=== PATIENT | male | born 1995 | race Caucasian/White ===

== ENCOUNTER 2018-07-08 03:15 | Inpatient (IN) | payer BC, OTHER ==
[~2018-07-08] VITALS: Ht 185.4 cm; Wt 84.1 kg
[~2018-07-08 03:15] MED LIST: DEXM15CA PO
[2018-07-08] MEDS: METOPROLOL TARTRATE 1 MG/ML VIAL IV STA ×2 (03:43→04:05)
[2018-07-08] MEDS ORDERED: SODIUM CHLORIDE 0.9% 1000ML 1,000 ML IV ONE ×2 (03:45)
[2018-07-08 03:47] LABS: BASO % 0.3 %; BASO ABS # 0.03 K/uL (0-0.2); EOS % 0.3 %; EOS ABS # 0.03 K/uL (0-0.5); HEMATOCRIT 44.2 % (42-52); HEMOGLOBIN 15.1 g/dL (14.0-18.0); IG# 0.01 K/uL (0.00-0.02); LYMPH % 28.8 %; LYMPH ABS # 2.52 K/uL (1.2-3.4); MEAN CORPUSCULAR HEMOGLOBIN 32.1 pg (25-34); MEAN CORPUSCULAR HGB CONC 34.2 g/dl (32-36); MEAN PLATELET VOLUME 10.1 fL (7.4-10.4); MONO % 9.2 %; MONO ABS # 0.81 K/uL (0.11-0.59); NEUT % 61.3 %; NEUT ABS # 5.36 K/uL (1.4-6.5); PLATELET COUNT 264 K/uL (130-400); RED CELL DISTRIBUTION WIDTH CV 11.8 % (11.5-14.5); RED CELL DISTRIBUTION WIDTH SD 40.2 fL (36.4-46.3); WHITE BLOOD COUNT 8.76 K/uL (4.8-10.8)
[2018-07-08 03:58] LABS: PTT PATIENT 27.3 SECONDS (21.0-31.0)
[2018-07-08 04:16] LABS: ALBUMIN 4.7 gm/dl (3.4-5.0); ALKALINE PHOSPHATASE 71 U/L (45-117); ALT/SGPT 20 U/L (12-78); AST/SGOT 19 U/L (15-37); BLOOD UREA NITROGEN 13 mg/dl (7-18); CALCIUM 8.9 mg/dl (8.5-10.1); CARBON DIOXIDE 24 mmol/L (21-32); CREATININE 1.25 mg/dl (0.60-1.40); GLUCOSE 88 mg/dl (70-99); POTASSIUM 3.4 mmol/L (3.5-5.1); SODIUM 139 mmol/L (136-145); TOTAL PROTEIN 8.3 gm/dl (6.4-8.2)
[2018-07-08] MEDS ORDERED: POTASSIUM CHLORIDE 20 MEQ TABCR PO STA ×2 (04:19→05:53)
[2018-07-08] MEDS ORDERED: POTASSIUM CHLORIDE 10 MEQ TABCR ONE ×3 (04:34→05:57)
[2018-07-08] MEDS ORDERED: DEXM1CAP PO (05:08)
[2018-07-08] MEDS ORDERED: NSS + 20MEQ KCL 1000ML 1,000 ML IV SCH ×2 (05:30→07:15)
[2018-07-08] MEDS: SODIUM CHLORIDE 0.9% 1000ML 1,000 ML IV SCH ×2 (05:45→07:01)
--- NOTE | 2018-07-08 05:56 | History and Physical ---
History & Physical Date & Time of Service: Jul 08, 2018 at 05:29 Chief Complaint: Speeding Heart,Fainting,Light Headed Primary Care Physician: [facility] History of Present Illness Source: patient, hospital records Patient is a 22 year old male with ADHD currently on Focalin that presents with rapid heart rate at rest with a syncopal episode this evening. The patient initially had an episode this evening around 11:45 after being out and having 4 drinks of alcohol earlier in the evening. He had been drinking from 11-12:30, and immediately when he left the bar he had a 10-20 second episode of elevated heart rate. His next episode was at 1:30 am again lasting 10-20 seconds. At 2am the episodes began to become more frequent, occurring on and off for 10 minutes. At this time he tried standing to help with the discomfort he was having, and fell over hitting his right side of his chest of the dressing and became unconscious for approximately 20 second. At that time they decided to come to the emergency department. He has since been having episode lasting 5-20 seconds on and off every few minutes. In the ED his heart rate will be 50s-70s NSR and then accelerate immediately to 170-200 bpm. He was given 2 doses of 5mg Lopressor in the ED that appeared to lower the maximal rate of these episodes from 200 down to 170/180 bpm. He denies any chest pain, dizziness, shortness of breath, vision changes, or any complaints other that palpitations during these episodes. He denies any other illicit drug use or energy drink throughout the day. The patient does appreciate that his mother has a history of rapid heart rate. He has never had an episode like this before. He has been on his Focalin for 6 years and had no cardiac issues during this time. Past Medical/Surgical History Medical Problems: (1) Avulsion of skin of right hand (2) Rapid resting heart rate Family History Mother - Rapid Heart Rate Social History Smoking Status: Never Smoker Smokeless Tobacco Use: No Alcohol Use: socially (Patient reports drinking alcohol every other day this week.) Drug Use: none Marital Status: single Housing status: lives alone Occupational Status: [employer] student Immunizations History of Influenza Vaccine: Unknown History of Tetanus Vaccine?: Unknown History of Pneumococcal: Unknown History of Hepatitis B Vaccine: Unknown Allergies Coded Allergies: No Known Allergies (Unverified , 09/02/15) Home Medications Scheduled Dexmethylphenidate Hcl (Focalin Xr), 25 MG PO DAILY Diltiazem Hcl Ext Rel (Tiazac), 120 MG PO DAILY Review of Systems Constitutional: No fever, No chills, No weight loss, No fatigue Respiratory: No cough, No sputum, No wheezing, No shortness of breath, No dyspnea on exertion Cardiovascular: + palpitations, No chest pain, No orthopnea, No edema Abdomen: No pain, No nausea, No vomiting, No diarrhea, No constipation Musculoskeletal: No joint pain Genitourinary - Male: No hematuria, No dysuria, No urinary frequency Endocrine: No fatigue, No excessive thirst, No excessive urination Integumentary: + problem reported (Large abrasion over the right side of the chest down to the hip) Physical Exam Vital Signs Date Time Temp Pulse Resp B/P (MAP) Pulse Ox O2 Delivery O2 Flow Rate FiO2 07/08/18 05:20 73 13 96 Room Air 07/08/18 05:15 62 14 122/76 96 07/08/18 05:10 81 12 98 07/08/18 05:05 69 20 99 07/08/18 05:00 118 19 122/76 92 07/08/18 04:55 79 20 97 07/08/18 04:50 72 10 95 07/08/18 04:45 156 10 119/105 07/08/18 04:40 67 14 97 07/08/18 04:35 72 14 99 07/08/18 04:30 69 10 123/82 97 07/08/18 04:25 74 21 100 07/08/18 04:20 76 17 100 07/08/18 04:15 71 21 131/89 90 07/08/18 04:15 71 21 131/89 99 Room Air 07/08/18 04:08 114/80 07/08/18 04:05 191 07/08/18 04:01 73 13 123/75 07/08/18 04:00 85 07/08/18 03:52 175 07/08/18 03:50 61 07/08/18 03:48 74 07/08/18 03:47 49 07/08/18 03:47 77 07/08/18 03:46 169 07/08/18 03:45 98 Room Air 07/08/18 03:45 76 07/08/18 03:45 74 14 134/90 07/08/18 03:43 188 07/08/18 03:43 68 07/08/18 03:42 153/94 07/08/18 03:42 07/08/18 03:40 189 10 07/08/18 03:36 68 07/08/18 03:35 170 07/08/18 03:35 88 17 07/08/18 03:34 74 07/08/18 03:32 58 07/08/18 03:30 62 15 07/08/18 03:29 75 07/08/18 03:29 76 07/08/18 03:27 176 07/08/18 03:27 199 07/08/18 03:27 56 07/08/18 03:26 210 07/08/18 03:17 36.9 72 18 118/78 98 Room Air General Appearance: WD/WN, no apparent distress Head: normocephalic, atraumatic Eyes: normal inspection, sclerae normal Neck: supple, no carotid bruits Respiratory/Chest: chest non-tender, lungs clear, normal breath sounds Cardiovascular: no edema, no gallop, no murmur, + tachycardia Abdomen/GI: normal bowel sounds, non tender, soft Back: no CVA tenderness Extremities/Musculoskelatal: no calf tenderness, no pedal edema Neurologic/Psych: alert, normal mood/affect, oriented x 3 Skin: + pertinent finding (Large abrasion over the right side of the chest from the nipple region down to the right hip) Diagnostics Laboratory Results Results Past 24 Hours Test 07/08/18 03:30 07/08/18 03:40 07/08/18 03:51 07/08/18 04:00 Range/Units White Blood Count 8.76 4.8-10.8 K/uL Red Blood Count 4.70 4.7-6.1 M/uL Hemoglobin 15.1 14.0-18.0 g/dL Hematocrit 44.2 42-52 % Mean Corpuscular Volume 94.0 80-100 fL Mean Corpuscular Hemoglobin 32.1 25-34 pg Mean Corpuscular Hemoglobin Concent 34.2 32-36 g/dl Platelet Count 264 130-400 K/uL Mean Platelet Volume 10.1 7.4-10.4 fL Neutrophils (%) (Auto) 61.3 % Lymphocytes (%) (Auto) 28.8 % Monocytes (%) (Auto) 9.2 % Eosinophils (%) (Auto) 0.3 % Basophils (%) (Auto) 0.3 % Neutrophils # (Auto) 5.36 1.4-6.5 K/uL Lymphocytes # (Auto) 2.52 1.2-3.4 K/uL Monocytes # (Auto) 0.81 0.11-0.59 K/uL Eosinophils # (Auto) 0.03 0-0.5 K/uL Basophils # (Auto) 0.03 0-0.2 K/uL RDW Standard Deviation 40.2 36.4-46.3 fL RDW Coefficient of Variation 11.8 11.5-14.5 % Immature Granulocyte % (Auto) 0.1 % Immature Granulocyte # (Auto) 0.01 0.00-0.02 K/uL Prothrombin Time 10.7 9.0-12.0 SECONDS Prothromb Time International Ratio 1.0 0.9-1.1 Activated Partial Thromboplast Time 27.3 21.0-31.0 SECONDS Partial Thromboplastin Ratio 1.1 Sodium Level 139 136-145 mmol/L Potassium Level 3.4 3.5-5.1 mmol/L Chloride Level 104 98-107 mmol/L Carbon Dioxide Level 24 21-32 mmol/L Anion Gap 11.0 3-11 mmol/L Blood Urea Nitrogen 13 7-18 mg/dl Creatinine 1.25 0.60-1.40 mg/dl Estimated GFR () 94.8 Estimated GFR (Non- 81.8 BUN/Creatinine Ratio 10.3 10-20 Random Glucose 88 70-99 mg/dl Calcium Level 8.9 8.5-10.1 mg/dl Magnesium Level 2.1 1.8-2.4 mg/dl Total Bilirubin 0.7 0.2-1 mg/dl Aspartate Amino Transf (AST/SGOT) 19 15-37 U/L Alanine Aminotransferase (ALT/SGPT) 20 12-78 U/L Alkaline Phosphatase 71 45-117 U/L Total Protein 8.3 6.4-8.2 gm/dl Albumin 4.7 3.4-5.0 gm/dl Globulin 3.6 2.5-4.0 gm/dl Albumin/Globulin Ratio 1.3 0.9-2 Thyroid Stimulating Hormone (TSH) 2.580 0.300-4.500 uIu/ml Lyme Disease IgG Antibody NEG NEG Lyme Disease IgM Antibody NEG NEG Ethyl Alcohol mg/dL 48.0 0-3 mg/dl Bedside Troponin I < 0.030 0-0.045 ng/ml Urine Color YELLOW Urine Appearance CLEAR CLEAR Urine pH 6.5 4.5-7.5 Urine Specific [place] 1.006 1.000-1.030 Urine Protein NEG NEG Urine Glucose (UA) NEG NEG Urine Ketones NEG NEG Urine Occult Blood NEG NEG Urine Nitrite NEG NEG Urine Bilirubin NEG NEG Urine Urobilinogen NEG NEG Urine Leukocyte Esterase NEG NEG Urine Opiates Screen NEG NEG Urine Methadone, Qualitative NEG NEG Urine Barbiturates NEG NEG Urine Phencyclidine (PCP) Level NEG NEG Ur Amphetamine/Methamphetamine NEG NEG MDMA (Ecstasy) Screen NEG NEG Urine Benzodiazepines Screen NEG NEG Urine Cocaine Metabolite NEG NEG Urine Marijuana (THC) NEG NEG Test 07/08/18 05:26 Range/Units EKG Poor data quality, interpretation may be adversely affected Undetermined rhythm Rightward axis Marked ST abnormality, possible inferior subendocardial injury Abnormal ECG When compared with ECG of 08-JUL-2018 03:25, (unconfirmed) Current undetermined rhythm precludes rhythm comparison, needs review ST now depressed in Inferior leads ST now depressed in Anterolateral leads T wave inversion now evident in Inferior leads Impression Assessment and Plan Patient is a 22 year old male with ADHD currently on Focalin that presents with rapid heart rate at rest with a syncopal episode this evening Symptomatic Inappropriate Sinus Tachycardia - Patient appears volume depleted --> Has already received 2L NS Bolus in the ED - Ethyl Alcohol 48.0 - 2L NS Bolus - NS + 20K @ 150 mls/hr - Cardiology Consult - Admit to telemetry Hypokalemia - K+ 3.4 - Given 40 mEq of Potassium Chloride IV in ED - Give another 40 mEq PO Potassium Chloride - Recheck BMP at 12 pm ADHD - Hold home meds DVT - SCDs Code Status - Attending addendum: I have physically seen this patient, have supervised the medical residents activities, and agree with the H&P unless as otherwise noted. Assessment and Plan: Paroxysmal supraventricular tachycardia/hypokalemia-- The patient will be admitted to telemetry for serial cardiac enzymes, serial EKG's, cardiac rhythm monitoring and a 2-D echocardiogram with Dopplers. Suspect associated with holiday heart on top of genetic predisposition to the mother's history. Advised cessation of alcohol completely. NSS + KCl 20 mEq at 150 mils per hour. Give potassium chloride 40 mEq by mouth and IV tonight. Serial CBC with differential, basic metabolic panel and magnesium level. Consult cardiology. Advanced Directives Existing Advance Directive: No Existing Living Will: No Existing Power of Lithograph Press Operator Tinware: No Resuscitation Status Full Resuscitation VTE Prophylaxis Will order VTE Prophylaxis: Yes Social Service Consult None Apply Resident Tracking Resident Involvement: Resident Care Provided Care Provided: Adult Hospital Medicine
[2018-07-08] MEDS ORDERED: ACETAMINOPHEN IV 100 ML IV PRN (06:00)
[2018-07-08 06:46] VITALS: O2SAT 98
--- NOTE | 2018-07-08 07:18 | DIAGNOSTIC IMAGING REPORT ---
SINGLE VIEW CHEST CLINICAL HISTORY: Tachycardia. FINDINGS: 2 AP, portable, supine chest radiographs are obtained. No prior studies are available for comparison at the time of dictation. The examination is degraded by portable technique and patient rotation. The cardiomediastinal silhouette is unremarkable. The lungs and pleural spaces are clear. No pneumothorax is seen. The bony thorax is grossly intact. IMPRESSION: No active disease in the chest. Electronically signed by: Ethan Kemp M.D. 07/08/2018 7:16 AM Dictated Date/Time: 07/08/2018 7:16 AM
[2018-07-08 07:30] VITALS: BP 116/80; PULSE 71; TEMP 36.9; Ht 185.4 cm; Wt 84.1 kg
[2018-07-08] MEDS ORDERED: POTASSIUM CHLORIDE 20 MEQ TABCR PO ONE (08:00)
[2018-07-08 09:44] VITALS: BP 116/80; PULSE 71; TEMP 36.9; O2SAT 98
[2018-07-08] MEDS ORDERED: DILT120C68 PO ×2 (10:06→11:59)
--- NOTE | 2018-07-08 10:12 | Discharge Instructions ---
Discharge Instructions Date of Service Jul 08, 2018. Admission Reason for Admission: Rapid Resting Heart Rate Discharge Discharge Diagnosis / Problem: Supraventricular Tachycardia Discharge Goals Goal(s): Improve disease control Activity Recommendations Activity Limitations: resume your previous activity . Instructions / Follow-Up Instructions / Follow-Up You were admitted to [facility] due to feeling like your heart was beating very quickly and an episode where you fainted. We were able to see this rhythm on the EKG (electrical tracing of your heart) and on the heart monitor that you were wearing, and it is a rhythm called supraventricular tachycardia. This is common in your age group and can be precipitated by caffeine, alcohol, stress. Essentially, the electrical system in your heart that controls the rhythm is not working properly and it causes your heart to frequently and suddenly beat very quickly for a period of time. Given that you have been stable and not having symptoms with this, we will treat you with a medicine that will help keep your heart rate regular called diltiazem. We will also make an appointment for you to follow up with cardiology in the office, and they will discuss further treatment options with you, such as ablation. In the meantime, if you experience more palpitations and have any chest pain, lightheadedness, shortness of breath or fainting episodes, please seek medical attention. Please follow up with Dr. Kapadia on July 12 at 1:10PM at the [facility] offices ([address], [address]). If you need to change or cancel your appointment, please call [phone]. Current Hospital Diet Patient's current hospital diet: Regular Diet Discharge Diet Recommended Diet: Regular Diet Pending Studies Studies pending at discharge: no Medical Emergencies . Who to Call and When: Medical Emergencies: If at any time you feel your situation is an emergency, please call 911 immediately. . Non-Emergent Contact Non-Emergency issues call your: Primary Care Provider . . "Provider Documentation" section prepared by Fnia Kapadia. .
[2018-07-08] MEDS ORDERED: BACITRACIN OINT 15 GM TUBE EXT ONE (10:15)
--- NOTE | 2018-07-08 10:17 | Cardiology Consultation ---
Cardiology Consultation Date of Consultation: Jul 08, 2018. Requesting Physician: Dr. Dudley Reason for Consultation: SVT Pt evaluation today including: conversation w/ patient, physical exam, lab review, review of studies, review of inpatient medication list, conversation w/ attending History of Present Illness This is a very pleasant 22-year-old college student, he is a senior at [employer]. He is on Focalin and has been for about 6 years. He has a long history of palpitations generally brief, generally occurring perhaps once a month and not being very bothersome. He recalls having these for most of his life. He has never had prolonged episodes until last evening, he was drinking throughout the evening, then noted frequent episodes of rapid HR. On one occasion he is reported to have dizziness and passed out while standing up for 15-20 seconds. He seems quite aware of the rapid heart rate and can describe it well, including prior to this event. He had very frequent episodes of rapid SVT in the emergency room, during the SVT the heart rate was often about 200 bpm. The episodes were relatively brief and became less frequent after admission. I believe he received 10 mg of IV metoprolol tartrate at about 4 AM. Past Medical/Surgical History Palpitations ADHD Social History Smoking Status: Never Smoker History of Alcohol Use: Yes (SOCIAL DRINKS) Review of Systems Constitutional: No fever, No weight loss, No weakness Respiratory: No cough, No wheezing, No shortness of breath, No dyspnea on exertion Cardiac: + see HPI, + palpitations, No chest pain, No orthopnea, No PND, No edema Abdomen: No pain, No nausea, No vomiting, No diarrhea, No GI bleeding Male : No urinary frequency, No nocturia more than once/night, No slowing stream, No sexual dysfunction Neurologic: No paralysis, No weakness, No numbness/tingling, No balance problems Heme: No abnormal bleeding/bruising, No clotting problems Endo: No fatigue Skin: No problem reported All Other Systems: Reviewed and Negative Allergies Coded Allergies: No Known Allergies (Unverified , 09/02/15) Medications Current Inpatient Medications Medications (Trade) Dose Ordered Sig/Charmaine Route Start Time Stop Time Status Last Admin Dose Admin Potassium Chloride/Sodium Chloride 1,000 ml @ 150 mls/hr [id number] IV 07/08/18 07:15 08/07/18 05:23 07/08/18 07:22 150 MLS/HR Acetaminophen 100 ml @ 400 mls/hr Q8H PRN IV 07/08/18 06:00 08/07/18 05:59 Physical Exam Vital Signs Past 12 Hours Date Time Temp Pulse Resp B/P (MAP) Pulse Ox O2 Delivery O2 Flow Rate FiO2 07/08/18 09:44 36.9 71 16 98 Room Air 07/08/18 07:30 36.9 71 16 116/80 Room Air 07/08/18 06:46 73 16 115/93 98 07/08/18 06:25 77 14 98 07/08/18 06:15 120/86 07/08/18 06:10 71 12 99 07/08/18 06:05 95 18 100 Room Air 07/08/18 06:00 64 18 111/83 99 07/08/18 05:55 79 16 95 07/08/18 05:50 90 15 96 Room Air 07/08/18 05:48 87/57 07/08/18 05:45 92 12 78/56 96 07/08/18 05:42 122/69 07/08/18 05:40 88 12 73/34 95 07/08/18 05:35 67 16 99 07/08/18 05:30 175 13 83/66 07/08/18 05:25 85 11 99 07/08/18 05:20 73 13 96 Room Air 07/08/18 05:15 62 14 122/76 96 07/08/18 05:10 81 12 98 07/08/18 05:05 69 20 99 07/08/18 05:00 118 19 122/76 92 07/08/18 04:55 79 20 97 07/08/18 04:50 72 10 95 07/08/18 04:45 156 10 119/105 07/08/18 04:40 67 14 97 07/08/18 04:35 72 14 99 07/08/18 04:30 69 10 123/82 97 07/08/18 04:25 74 21 100 07/08/18 04:20 76 17 100 07/08/18 04:15 71 21 131/89 90 07/08/18 04:15 71 21 131/89 99 Room Air 07/08/18 04:08 114/80 07/08/18 04:05 191 07/08/18 04:01 73 13 123/75 07/08/18 04:00 85 07/08/18 03:52 175 07/08/18 03:50 61 07/08/18 03:48 74 07/08/18 03:47 49 07/08/18 03:47 77 07/08/18 03:46 169 07/08/18 03:45 98 Room Air 07/08/18 03:45 76 07/08/18 03:45 74 14 134/90 07/08/18 03:43 188 07/08/18 03:43 68 07/08/18 03:42 153/94 07/08/18 03:42 07/08/18 03:40 189 10 07/08/18 03:36 68 07/08/18 03:35 170 07/08/18 03:35 88 17 07/08/18 03:34 74 07/08/18 03:32 58 07/08/18 03:30 62 15 07/08/18 03:29 75 07/08/18 03:29 76 07/08/18 03:27 176 07/08/18 03:27 199 07/08/18 03:27 56 07/08/18 03:26 210 07/08/18 03:17 36.9 72 18 118/78 98 Room Air Constitutional: General Apperance: heathly-appearing Level of Distress: NAD Psychiatric: Mental Status: active & alert Head: normocephalic Eyes: EOM: EOMI ENMT: normal ENT inspection, hearing grossly normal Neck: supple, no masses Lungs: Respiratory effort: no dyspnea, good air movement Auscultation: breath sounds normal, no wheezing Cardiovascular: Heart Auscultation: RRR, no murmurs, no rubs, no gallops Peripheral Pulses: Bruits: none appreciated Abdomen: Bowel Sounds: normal Inspection & Palpation: soft, no tenderness, guarding & rebound, no masses Musculoskeletal: normal strength (5/5 throughout) Extremities: no edema Neurologic: Cranial Nerves: grossly intact Sensation: grossly intact Data Laboratory Results: Last 24 Hours Test 07/08/18 03:30 07/08/18 03:40 07/08/18 03:51 07/08/18 04:00 White Blood Count 8.76 K/uL Red Blood Count 4.70 M/uL Hemoglobin 15.1 g/dL Hematocrit 44.2 % Mean Corpuscular Volume 94.0 fL Mean Corpuscular Hemoglobin 32.1 pg Mean Corpuscular Hemoglobin Concent 34.2 g/dl Platelet Count 264 K/uL Mean Platelet Volume 10.1 fL Neutrophils (%) (Auto) 61.3 % Lymphocytes (%) (Auto) 28.8 % Monocytes (%) (Auto) 9.2 % Eosinophils (%) (Auto) 0.3 % Basophils (%) (Auto) 0.3 % Neutrophils # (Auto) 5.36 K/uL Lymphocytes # (Auto) 2.52 K/uL Monocytes # (Auto) 0.81 K/uL Eosinophils # (Auto) 0.03 K/uL Basophils # (Auto) 0.03 K/uL RDW Standard Deviation 40.2 fL RDW Coefficient of Variation 11.8 % Immature Granulocyte % (Auto) 0.1 % Immature Granulocyte # (Auto) 0.01 K/uL Prothrombin Time 10.7 SECONDS Prothromb Time International Ratio 1.0 Activated Partial Thromboplast Time 27.3 SECONDS Partial Thromboplastin Ratio 1.1 Sodium Level 139 mmol/L Potassium Level 3.4 mmol/L Chloride Level 104 mmol/L Carbon Dioxide Level 24 mmol/L Anion Gap 11.0 mmol/L Blood Urea Nitrogen 13 mg/dl Creatinine 1.25 mg/dl Estimated GFR () 94.8 Estimated GFR (Non- 81.8 BUN/Creatinine Ratio 10.3 Random Glucose 88 mg/dl Calcium Level 8.9 mg/dl Magnesium Level 2.1 mg/dl Total Bilirubin 0.7 mg/dl Aspartate Amino Transf (AST/SGOT) 19 U/L Alanine Aminotransferase (ALT/SGPT) 20 U/L Alkaline Phosphatase 71 U/L Total Protein 8.3 gm/dl Albumin 4.7 gm/dl Globulin 3.6 gm/dl Albumin/Globulin Ratio 1.3 Thyroid Stimulating Hormone (TSH) 2.580 uIu/ml Lyme Disease IgG Antibody NEG Lyme Disease IgM Antibody NEG Ethyl Alcohol mg/dL 48.0 mg/dl Bedside Troponin I < 0.030 ng/ml Urine Color YELLOW Urine Appearance CLEAR Urine pH 6.5 Urine Specific [place] 1.006 Urine Protein NEG Urine Glucose (UA) NEG Urine Ketones NEG Urine Occult Blood NEG Urine Nitrite NEG Urine Bilirubin NEG Urine Urobilinogen NEG Urine Leukocyte Esterase NEG Urine Opiates Screen NEG Urine Methadone, Qualitative NEG Urine Barbiturates NEG Urine Phencyclidine (PCP) Level NEG Ur Amphetamine/Methamphetamine NEG MDMA (Ecstasy) Screen NEG Urine Benzodiazepines Screen NEG Urine Cocaine Metabolite NEG Urine Marijuana (THC) NEG Imaging: Normal on preliminary review EKG: During SVT suggestive of typical AV christian reentry although perhaps not diagnostic. During sinus rhythm the ECG is normal. Telemetry reviewed: Sinus rhythm with very frequent episodes of PSVT. The episodes are less frequent after initial treatment in the emergency room. They seem to start with a premature atrial beat with VA prolongation consistent with typical AV christian reentry. Assessment & Plan 1. 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 The very frequent episodes which occurred prompting this presentation may have been prompted by alcohol use in conjunction with Focalin therapy and perhaps a contribution of his slight hypokalemia. I discussed options with him, this includes doing nothing (which may not be a good idea considering the severity of his episodes during the hours preceding his admission) versus medical therapy or ablation. He would prefer medical therapy I think that is reasonable for the time being. He does not have much trouble with it in the past and I think there may have been exacerbating factors last night. I would therefore recommend trying medical therapy which I told him he needs to take a day, not just when he starts having palpitations. We could use beta-blockade (which seems to have helped) however young people often do not tolerate it well. Perhaps calcium blockade is a better choice and I will start him on oral diltiazem. I will send him up to be seen in the office in several weeks. Thank you for allowing me to participate in his care.
--- NOTE | 2018-07-08 10:19 | Discharge Summary ---
Discharge Summary Date of Service Jul 08, 2018. Discharge Summary Admission Date: Jul 08, 2018 at 05:29 Discharge Date: Jul 08, 2018 Discharge Disposition: Home Principal Diagnosis: Supraventricular Tachycardia Problems/Secondary Diagnoses: 1) ADHD Procedures: CXR IMPRESSION: No active disease in the chest. Consultations: Cardiology Medication Reconciliation New Medications: Diltiazem Hcl Ext Rel (Tiazac) 120 Mg Capcr 120 MG PO DAILY for 30 Days, #30 CAP 3 Refills Continued Medications: Dexmethylphenidate Hcl (Focalin Xr) 25 Mg Cap 25 MG PO DAILY, CAP Discharge Exam Mr. Hernandez reports he remains with occasional episodes of palpitations that resolve within a few seconds. He states it feels like his heart pauses, beats really fast, pauses again and then beats normally. He reports he has had this for a number of years, but that the episodes are usually self-limiting and he is otherwise asymptomatic. He denies chest pain, shortness of breath, and has no other complaints today. He has otherwise been well recently. Review of Systems: Constitutional: No fever, No chills Respiratory: No shortness of breath Cardiovascular: No chest pain Abdomen: No pain, No nausea, No vomiting Physical Exam: General Appearance: WD/WN, no apparent distress Respiratory/Chest: lungs clear, normal breath sounds, no respiratory distress, no accessory muscle use Cardiovascular: regular rate, rhythm, no edema, no murmur, normal peripheral pulses Abdomen / GI: non tender, soft, + pertinent finding (abrasion over right side of abdomen and on right side of chest. Superficial, not bleeding.) Hospital Course Mr. Hernandez is a 22 year old male with ADHD currently on Focalin that presents with rapid heart rate at rest with a subsequent syncopal episode this evening. Supraventricular Tachycardia - EKG and telemetry monitoring consistent w/SVT - pt was rehydrated with 3.5L bolus - no electrolyte abnormalities, TSH WNL, troponin negative - cardiology was consulted -> likely SVT w/typical AV [employer] -> discussed treatment options w/patients -> opt for medical management for now. Follow up w/cardiology in clinic -> may be a candidate for ablation - start diltiazem 120mg ER daily - ECHO -> normal LV size and wall thickness -> LVEF = 45-50% w/mild global dysfunction -> borderline dilated RV and mild MR -> likely secondary to a combination of SVT, alcohol intake and MR -> repeat ECHO within 6 months Resident Physician Supervision Note: I interviewed and examined the patient. Discussed with Dr. Kapadia and agree with findings and plan as documented in the note. Any exceptions or clarifications are listed here: None Documented By: Russel Hardin feeling better ok to go home d/w cardiology several times, input appreciated vitals noted nad breathing unlabored no pallor or icterus SVT - now sinus. diltiazem, close outpt f/u - would plan for elective ablation in near future systolic dysfunction cardiomyopathy - ?rate related, ?all acute. ?chronic due to rate/EtOH and MR? f/u echo in near future mild MR - likely contributory to above due to poorer forward CO w SVT - follow w serial echo Total Time Spent: Less than 30 minutes This includes examination of the patient, discharge planning, medication reconciliation, and communication with other providers. Discharge Instructions Please refer to the electronic Patient Visit Report (Discharge Instructions) for additional information. Resident Tracking Resident Involvement: Resident Care Provided Care Provided: Adult Hospital Medicine
--- NOTE | 2018-07-08 10:23 | ECHOCARDIOGRAM REPORT ---
*NOTICE TO RECEIVING DEMOCRAT AGENCY This information is strictly Confidential and protected under [place] law. [place] law prohibits you from making any further disclosure of this information unless further disclosure is expressly permitted by the written consent of the person to whom it pertains or is authorized by law. A general authorization for the release of medical or other information is not sufficient for this purpose. Hospital accepts no responsibility if the information is made available to any other person, INCLUDING THE PATIENT. Interpretation Summary * Name: MADHU TAYLOR Study Date: 07/08/2018 06:18 AM BP: 120/86 mmHg * Patient Location: C.2T\S\S241\S\1 HR: 75 * : 1995 (M/d/yyyy) Gender: Male Height: 73 in * Age: 22 yrs Ethnicity: CA Weight: 185 lb * Ordering Physician: Jagdish Dudley * Referring Physician: Self, Referred * Performed By: Asha Remy RCS * * Reason For Study: TACHYCARDIA * BSA: 2.1 m2 * -- Conclusions -- * 1. Normal LV size and wall thickness. * 2. LVEF 45-50%. Mild global dysfunction. * 3. Borderline dilated RV with normal function. * 4. Mild mitral regurgitation. * 5. Normal estimated RA and PA pressures. * 6. No prior studies for comparison. Procedure Details * A complete two-dimensional transthoracic echocardiogram was performed (2D, M-mode, Doppler and color flow Doppler). Left Ventricle * The left ventricle is grossly normal size. * There is normal left ventricular wall thickness. * Ejection Fraction = 45-50%. * No regional wall motion abnormalities noted. Right Ventricle * The right ventricle is mildly dilated. * The right ventricular systolic function is normal as assessed by tricuspid annular plane systolic excursion (TAPSE) (normal >1.5 cm). Atria * Borderline left atrial enlargement. * Borderline right atrial enlargement. * No ASD detected; PFO is not assessed. Mitral Valve * The mitral valve is grossly normal. * There is no mitral valve stenosis. * There is mild mitral regurgitation. Tricuspid Valve * There is trace tricuspid regurgitation. Aortic Valve * The aortic valve opens well. * The aortic valve is trileaflet. * No hemodynamically significant valvular aortic stenosis. * There is no significant aortic regurgitation. Pulmonic Valve * The pulmonic valve is not well seen, but is grossly normal. * There is no pulmonic valvular stenosis. * Trace pulmonic valvular regurgitation. Great Vessels * The aortic root and proximal ascending aorta are normal sized. Pericardium/Pleural * There is no pericardial effusion. Great Vessels * Normal inferior vena cava size and collapsability with sniff indicates a normal right atrial pressure of 3 mmHg MMode 2D Measurements and Calculations IVSd 1.2 cm IVSs 1.5 cm LVIDd 5.2 cm LVIDs 4.3 cm LVPWd 1.1 cm LVPWs 1.4 cm IVS/LVPW 1.0 FS 17.6 % EDV(Teich) 129.6 ml ESV(Teich) 82.4 ml EF(Teich) 36.4 % EDV(cubed) 140.7 ml ESV(cubed) 78.7 ml EF(cubed) 44.0 % % IVS thick 25.7 % % LVPW thick 25.4 % LV mass(C)d 232.9 grams LV mass(C)dI 111.9 grams/m\S\2 LV mass(C)s 240.2 grams LV mass(C)sI 115.4 grams/m\S\2 SV(Teich) 47.1 ml SI(Teich) 22.6 ml/m\S\2 SV(cubed) 62.0 ml SI(cubed) 29.8 ml/m\S\2 Ao root diam 2.9 cm Ao root area 6.7 cm\S\2 ACS 3.1 cm LA dimension 3.6 cm LA/Ao 1.2 LVOT diam 2.3 cm LVOT area 4.3 cm\S\2 LVAd ap4 42.7 cm\S\2 LVLd ap4 9.6 cm EDV(MOD-sp4) 158.0 ml EDV(sp4-el) 161.6 ml LVAs ap4 29.9 cm\S\2 LVLs ap4 8.4 cm ESV(MOD-sp4) 88.9 ml ESV(sp4-el) 90.5 ml EF(MOD-sp4) 43.7 % EF(sp4-el) 44.0 % LVAd ap2 35.0 cm\S\2 LVLd ap2 8.9 cm EDV(MOD-sp2) 114.9 ml EDV(sp2-el) 116.9 ml LVAs ap2 26.1 cm\S\2 LVLs ap2 8.3 cm ESV(MOD-sp2) 67.2 ml ESV(sp2-el) 69.8 ml EF(MOD-sp2) 41.5 % EF(sp2-el) 40.2 % LVLd %diff -7.73 % EDV(MOD-bp) 138.4 ml LVLs %diff -0.98 % ESV(MOD-bp) 77.2 ml EF(MOD-bp) 44.2 % SV(MOD-sp4) 69.1 ml SI(MOD-sp4) 33.2 ml/m\S\2 SV(MOD-sp2) 47.7 ml SI(MOD-sp2) 22.9 ml/m\S\2 SV(MOD-bp) 61.2 ml SI(MOD-bp) 29.4 ml/m\S\2 SV(sp4-el) 71.0 ml SI(sp4-el) 34.1 ml/m\S\2 SV(sp2-el) 47.0 ml SI(sp2-el) 22.6 ml/m\S\2 Doppler Measurements and Calculations MV E max juliana 78.2 cm/sec MV A max juliana 58.8 cm/sec MV E/A 1.3 MV P1/2t max juliana 91.5 cm/sec MV P1/2t 49.3 msec MVA(P1/2t) 4.5 cm\S\2 MV dec slope 543.5 cm/sec\S\2 MV dec time 0.14 sec Ao V2 max 93.2 cm/sec Ao max PG 3.5 mmHg Ao max PG (full) 1.2 mmHg CAROLIN(V,A) 3.5 cm\S\2 CAROLIN(V,D) 3.5 cm\S\2 LV V1 max PG 2.3 mmHg LV V1 max 75.2 cm/sec PA V2 max 71.6 cm/sec PA max PG 2.1 mmHg PI max juliana 156.2 cm/sec PI max PG 9.8 mmHg PI dec slope 104.8 cm/sec\S\2 PI P1/2t 436.3 msec
[2018-07-08] MEDS ORDERED: DILTIAZEM HCL 180 MG CAPCR PO SCH (11:30)
[2018-07-08 11:43] VITALS: BP 121/75; PULSE 60; TEMP 36.5; O2SAT 98
[2018-07-08 12:38] LABS: CALCIUM 8.3 mg/dl (8.5-10.1); CREATININE 0.91 mg/dl (0.60-1.40); POTASSIUM 4.3 mmol/L (3.5-5.1)
--- NOTE | 2018-07-09 05:11 | EMERGENCY ROOM VISIT NOTE ---
History First contact with patient: 03:22 Chief Complaint: RAPID HEART RATE Stated Complaint: RAPID RESTING HEART RATE Nursing Triage Summary: Pt c/o having heart palpitations while leaving the bar [facility]. Pt states he felt dizzy and not right. Pt went to [employer] house. Pt states while he was there he started to feel this way again. Pt states he had a syncopal episode with it that lasted around 20 seconds. on arrival, patients HR goes from [address] History of Present Illness The patient is a 22 year old male who presents to the Emergency Room with complaints of syncopal episode bring him to the emergency department [facility]. The patient states that he was out with his girlfriend, and had 3 mixed drinks and 1 shot while at the bar. He went back to his girlfriend's house, where he began feeling palpitations in his chest. The patient states these palpitations were intermittent, and he tried to stand up as he felt this may improve things. When the patient stood up he lost consciousness, and fell to the ground. The event was witnessed by his girlfriend who states that he was out for roughly 20 seconds. When he fell he struck into a piece of furniture and suffered abrasion to his right side chest wall. The patient recovered very quickly, and did not have seizure-like activity afterwards. He now presents to the ER as he continues to have these palpitations that are quite symptomatic. He has never had anything to this extent before. The patient is usually healthy and does take Focalin, which he has been on for the past 6 years. He will drink socially , but has not had this in the past. He rates his current discomfort as 0/10 when laying down, however sitting and standing significantly increase his lightheadedness. Review of Systems More than 10 systems were reviewed and otherwise negative with the exception of history of present illness. Past Medical/Surgical History Medical Problems: (1) Rapid resting heart rate Family History No pertinent family history Social History Smoking Status: Never Smoker Smokeless Tobacco Use: No Alcohol Use: occasionally Drug Use: none Marital Status: in relationship Occupation Status: [employer] student Current/Historical Medications Scheduled Dexmethylphenidate Hcl (Focalin Xr), 25 MG PO DAILY Diltiazem Hcl Ext Rel (Tiazac), 120 MG PO DAILY Physical Exam Vital Signs Date Time Temp Pulse Resp B/P (MAP) Pulse Ox O2 Delivery O2 Flow Rate FiO2 07/08/18 05:25 85 11 99 07/08/18 05:20 73 13 96 Room Air 07/08/18 05:15 62 14 122/76 96 07/08/18 05:10 81 12 98 07/08/18 05:05 69 20 99 07/08/18 05:00 118 19 122/76 92 07/08/18 04:55 79 20 97 07/08/18 04:50 72 10 95 07/08/18 04:45 156 10 119/105 07/08/18 04:40 67 14 97 07/08/18 04:35 72 14 99 07/08/18 04:30 69 10 123/82 97 07/08/18 04:25 74 21 100 07/08/18 04:20 76 17 100 07/08/18 04:15 71 21 131/89 90 07/08/18 04:15 71 21 131/89 99 Room Air 07/08/18 04:08 114/80 07/08/18 04:05 191 07/08/18 04:01 73 13 123/75 07/08/18 04:00 85 07/08/18 03:52 175 07/08/18 03:50 61 07/08/18 03:48 74 07/08/18 03:47 49 07/08/18 03:47 77 07/08/18 03:46 169 07/08/18 03:45 98 Room Air 07/08/18 03:45 76 07/08/18 03:45 74 14 134/90 07/08/18 03:43 188 07/08/18 03:43 68 07/08/18 03:42 153/94 07/08/18 03:42 07/08/18 03:40 189 10 07/08/18 03:36 68 07/08/18 03:35 170 07/08/18 03:35 88 17 07/08/18 03:34 74 07/08/18 03:32 58 07/08/18 03:30 62 15 07/08/18 03:29 75 07/08/18 03:29 76 07/08/18 03:27 176 07/08/18 03:27 199 07/08/18 03:27 56 07/08/18 03:26 210 07/08/18 03:17 36.9 72 18 118/78 98 Room Air Physical Exam VITALS: Vitals are noted on the nurse's note and reviewed by myself. Vital signs stable. GENERAL: Well-developed, well-nourished, white male, who is in no acute distress and resting comfortably. Patient is cooperative with the examination. HEAD: Normocephalic atraumatic. EARS: External ear normal. External auditory canals clear, tympanic membranes pearly musa without erythema or effusion bilaterally. EYES: Pupils equal round and reactive to light and accommodation. Conjunctivae without injection, sclerae without icterus. Extraocular movements intact. NOSE: Patent, turbinates without inflammation or discharge. MOUTH: Mucous membranes moist. Tonsils are not enlarged. Pharynx without erythema, blood, or exudate. Uvula midline. Airway patent. NECK: Supple without nuchal rigidity. No lymphadenopathy. No thyromegaly. Cervical spine is nontender. HEART: Regular rate and rhythm without murmurs gallops or rubs. LUNGS: Clear to auscultation bilaterally without wheezes, rales or rhonchi. No retractions or accessory muscle use. SKIN: Superficial abrasion appreciated to the right side chest wall without active laceration Medical Decision & Procedures ER Provider Diagnostic Interpretation: SINGLE VIEW CHEST CLINICAL HISTORY: Tachycardia. FINDINGS: 2 AP, portable, supine chest radiographs are obtained. No prior studies are available for comparison at the time of dictation. The examination is degraded by portable technique and patient rotation. The cardiomediastinal silhouette is unremarkable. The lungs and pleural spaces are clear. No pneumothorax is seen. The bony thorax is grossly intact. IMPRESSION: No active disease in the chest. Laboratory Results 07/08/18 03:30 Red Blood Count 4.70, Mean Corpuscular Volume 94.0, Mean Corpuscular Hemoglobin 32.1, Mean Corpuscular Hemoglobin Concent 34.2, Mean Platelet Volume 10.1, Neutrophils (%) (Auto) 61.3, Lymphocytes (%) (Auto) 28.8, Monocytes (%) (Auto) 9.2, Eosinophils (%) (Auto) 0.3, Basophils (%) (Auto) 0.3, Neutrophils # (Auto) 5.36, Lymphocytes # (Auto) 2.52, Monocytes # (Auto) 0.81, Eosinophils # (Auto) 0.03, Basophils # (Auto) 0.03 Test 07/08/18 03:30 07/08/18 03:40 07/08/18 03:51 07/08/18 04:00 White Blood Count 8.76 K/uL (4.8-10.8) Red Blood Count 4.70 M/uL (4.7-6.1) Hemoglobin 15.1 g/dL (14.0-18.0) Hematocrit 44.2 % (42-52) Mean Corpuscular Volume 94.0 fL (80-100) Mean Corpuscular Hemoglobin 32.1 pg (25-34) Mean Corpuscular Hemoglobin Concent 34.2 g/dl (32-36) Platelet Count 264 K/uL (130-400) Mean Platelet Volume 10.1 fL (7.4-10.4) Neutrophils (%) (Auto) 61.3 % Lymphocytes (%) (Auto) 28.8 % Monocytes (%) (Auto) 9.2 % Eosinophils (%) (Auto) 0.3 % Basophils (%) (Auto) 0.3 % Neutrophils # (Auto) 5.36 K/uL (1.4-6.5) Lymphocytes # (Auto) 2.52 K/uL (1.2-3.4) Monocytes # (Auto) 0.81 K/uL (0.11-0.59) Eosinophils # (Auto) 0.03 K/uL (0-0.5) Basophils # (Auto) 0.03 K/uL (0-0.2) RDW Standard Deviation 40.2 fL (36.4-46.3) RDW Coefficient of Variation 11.8 % (11.5-14.5) Immature Granulocyte % (Auto) 0.1 % Immature Granulocyte # (Auto) 0.01 K/uL (0.00-0.02) Prothrombin Time 10.7 SECONDS (9.0-12.0) Prothromb Time International Ratio 1.0 (0.9-1.1) Activated Partial Thromboplast Time 27.3 SECONDS (21.0-31.0) Partial Thromboplastin Ratio 1.1 Magnesium Level 2.1 mg/dl (1.8-2.4) Total Bilirubin 0.7 mg/dl (0.2-1) Aspartate Amino Transf (AST/SGOT) 19 U/L (15-37) Alanine Aminotransferase (ALT/SGPT) 20 U/L (12-78) Alkaline Phosphatase 71 U/L (45-117) Total Protein 8.3 gm/dl (6.4-8.2) Albumin 4.7 gm/dl (3.4-5.0) Globulin 3.6 gm/dl (2.5-4.0) Albumin/Globulin Ratio 1.3 (0.9-2) Thyroid Stimulating Hormone (TSH) 2.580 uIu/ml (0.300-4.500) Lyme Disease IgG Antibody NEG (NEG) Lyme Disease IgM Antibody NEG (NEG) Ethyl Alcohol mg/dL 48.0 mg/dl (0-3) Bedside Troponin I < 0.030 ng/ml (0-0.045) Urine Color YELLOW Urine Appearance CLEAR (CLEAR) Urine pH 6.5 (4.5-7.5) Urine Specific [place] 1.006 (1.000-1.030) Urine Protein NEG (NEG) Urine Glucose (UA) NEG (NEG) Urine Ketones NEG (NEG) Urine Occult Blood NEG (NEG) Urine Nitrite NEG (NEG) Urine Bilirubin NEG (NEG) Urine Urobilinogen NEG (NEG) Urine Leukocyte Esterase NEG (NEG) Urine Opiates Screen NEG (NEG) Urine Methadone, Qualitative NEG (NEG) Urine Barbiturates NEG (NEG) Urine Phencyclidine (PCP) Level NEG (NEG) Ur Amphetamine/Methamphetamine NEG (NEG) MDMA (Ecstasy) Screen NEG (NEG) Urine Benzodiazepines Screen NEG (NEG) Urine Cocaine Metabolite NEG (NEG) Urine Marijuana (THC) NEG (NEG) Medications Administered Medications (Trade) Dose Ordered Sig/Charmaine Route Start Time Stop Time Status Last Admin Dose Admin Metoprolol Tartrate (Lopressor Iv) 10 mg NOW STAT IV 07/08/18 03:31 07/08/18 03:35 DC 07/08/18 04:05 10 MG Sodium Chloride 1,000 ml @ 999 mls/hr Q1H1M ONCE IV 07/08/18 03:45 07/08/18 04:45 DC 07/08/18 03:43 999 MLS/HR Sodium Chloride 1,000 ml @ 999 mls/hr Q1H1M ONCE IV 07/08/18 03:45 07/08/18 04:45 DC 07/08/18 04:08 999 MLS/HR Potassium Chloride (Klor-Con M10) 20 meq STK-MED ONCE .ROUTE 07/08/18 04:34 07/08/18 04:35 DC 07/08/18 04:36 20 MEQ ECG Per My Interpretation Change: Initial EKG: Normal sinus rhythm with sinus arrhythmia @71bpm Normal ECG No previous ECGs available 2nd EKG Sinus rhythm with SVT @186bpm Rightward axis Abnormal ECG When compared with ECG of 08-JUL-2018 03:25, (unconfirmed) Supraventricular tachycardia is now Present 3rd EKG Supraventricular tachycardia terminating into sinus tachycardia @179 Rightward axis Abnormal ECG ED Course Physical exam and history were performed. Nursing notes, EMR, and Medication List were personally reviewed. Patient appears to have suffered a syncopal episode today. Upon my arrival to the patient's room I did note that her EKG was performed and was normal sinus rhythm. While standing in the room the patient was placed on the manager monitoring. He had several wide-ranging episodes of sinus tachycardia where his rate would go from the mid 50s up into the 180s and 190s. These episodes would last for 10-15 seconds maximum, and then he would convert back to normal sinus rhythm. We did capture these on multiple EKGs. The case was discussed with my attending physician, and we did start the patient on Lopressor after IV access was established. X-ray was performed and reviewed by myself and radiology as showing no acute process. The patient's blood work is as above and was reviewed. He does not have a significantly elevated white blood cell count, gross anemia, bandemia, or significant electrolyte imbalance. Lipase and transaminases are not diagnostic. Troponin 1 is negative. TSH is euthyroid state. Potassium is slightly low. Urine is without evidence of infection and drug of abuse screen is negative. Patient was monitored for several hours and had Innumerable episodes of sinus tachycardia/SVT with spontaneous conversion back to normal sinus rhythm. Some of these episodes the patient was able to abort with bearing down. He did have some minimal improvement with the Lopressor, and that the episodes would occur every 4-5 minutes as opposed to every minute. The patient is quite aware when the episodes onset, and is able to describe when they are about to occur. Overall despite hydration, repletion of his potassium, and Lopressor, the patient continued with his symptoms. He is not felt to be well for discharge. The case was discussed with the on-call hospitalist, who agreed to evaluate the patient here in the department. Please see their dictation for further patient course, plan, and disposition. The chart was completed utilizing [employer] Speech Voice Recognition Software. Grammatical errors, random word insertions, pronoun errors, and incomplete sentences are an occasional consequence of this system due to software limitations, ambient noise, and hardware issues. Any formal questions or concerns about the content, text, or information contained within the body of this dictation should be directly addressed to the provider for clarification. . Medical Decision Differential diagnosis: Etiologies such as vasovagal event, infection, hypoglycemia, electrolyte abnormalities, cardiac sources, intracerebral event, toxicologic, neurologic, as well as others were entertained. Impression Primary Impression: Syncope and collapse Additional Impression: Paroxysmal SVT (supraventricular tachycardia) Departure Information Dispostion Admitted as an inpatient Prescriptions Diltiazem Hcl Ext Rel (Tiazac) 120 Mg Capcr 120 MG PO DAILY for 30 Days, #30 CAP 3 Refills Prov: Fina Kapadia M.D. 07/08/18 Referrals [facility] Forms WORK / SCHOOL INSTRUCTIONS, HOME CARE DOCUMENTATION FORM, IMPORTANT VISIT INFORMATION Patient Instructions My [facility] Problem Qualifiers
== END 2018-07-08 12:21 | disposition home or self-care (01) | DRG 310 ==
LOC: C.EDB 03:16 → C.2T 05:29 → ENRESERV 06:28
PROVIDERS: ADMIT Student in an Organized Health Care Education/Training Program; ATTEND Family Medicine
DX: I47.1 Supraventricular tachycardia (principal); F90.9 Attention-deficit hyperactivity disorder, unspecified type; Z82.49 Family history of ischemic heart disease and other diseases of the circulatory system; E87.6 Hypokalemia; I47.0 Re-entry ventricular arrhythmia